=== PATIENT | male | born 1955 | race African-American/Black ===

== ENCOUNTER 2020-09-11 03:50 | Emergency (ER) | payer MEDICARE ==
[~2020-09-11] VITALS: Ht 170.2 cm; Wt 68.0 kg
[2020-09-11] MEDS ORDERED: METHYLPREDNISOLONE SOD SUCC 125 MG/2ML VIAL IM ONE (04:00)
[2020-09-11] MEDS ORDERED: ALBUTEROL/IPRATROPIUM 3 ML NEB NEB ONE ×2 (04:15)
[2020-09-11] MEDS ORDERED: ALBUTEROL/IPRATROPIUM 3 ML NEB ONE (04:16)
[2020-09-11 04:51] VITALS: BP 150/84
== END 2020-09-11 04:45 | disposition home or self-care (01) ==
LOC: ER 03:53
DX: R06.02 Shortness of breath (principal); J44.1 Chronic obstructive pulmonary disease with (acute) exacerbation; I10 Essential (primary) hypertension; Z86.73 Personal history of transient ischemic attack (TIA), and cerebral infarction without residual deficits; F17.210 Nicotine dependence, cigarettes, uncomplicated
CPT/HCPCS: 71045; 99283; J2930